=== PATIENT | female | born 1965 | race Caucasian/White ===

== ENCOUNTER 2017-07-19 07:36 | Day surgery (SDC) | payer MEDICAID ==
[2017-07-19] MEDS ORDERED: LIDOCAINE 2% MDV (20MG/ML) 20ML VIAL IV ONE (07:37)
[2017-07-19] MEDS ORDERED: PROPOFOL 10 MG/ML VIAL IV ONE (07:37)
--- NOTE | 2017-07-23 07:10 | Operative Note ---
DATE OF SURGERY: 07/19/2017 REQUESTING PHYSICIAN: Henna Massey MD SURGEON: Tenisha Jay MD POSTOPERATIVE DIAGNOSES: 1. Left-sided colonic diverticulosis. 2. A 6 mm sigmoid colon polyp that was removed by cold snare. 3. A 3 mm sessile polyp in the rectum that was removed by cold biopsy forceps. OPERATION: COLONOSCOPY and exam. REASON FOR PROCEDURE: This is a 52-year-old female with history of intermittent incidents of rectal bleeding who presented for colonoscopy. SEDATION: Sedation as per anesthesia. Pulse oximetry was monitored throughout the duration of the procedure to maintain O2 saturation of 90% or greater. Supplemental oxygen was administered via nasal cannula. Cardiac and vital signs were monitored throughout the duration of the procedure and they were stable. PROCEDURE: Description of the procedure of colonoscopy, risks, and alternatives to the procedure including the risk of bleeding and perforation among others were explained to the patient who voiced understanding and agreed to have the procedure done. A physical examination was performed and the patient was found stable for sedation. The patient was then placed in the left lateral position and sedation was initiated. Digital rectal exam was performed and showed small external hemorrhoids with no palpable rectal masses. A lubricated Olympus PCF-180AL colonoscope was then inserted into the rectum under direct visualization and was advanced to the cecum without difficulty. The ileocecal valve and appendiceal orifice were identified and photographed. The colonic mucosa was carefully examined upon insertion of the colonoscope. There were scattered diverticula noted in the sigmoid colon, and also there was a 6 mm sessile polyp that was removed by cold snare. The rest of the colonic mucosa appeared normal. The bowel preparation was good. The colonoscope was then withdrawn while carefully examining the colonic mucosal surfaces. No other lesions were noted. In the rectum, however, was a 3 mm sessile polyp that was noted and was removed by cold biopsy forceps. Retroflexion revealed grade 1 internal hemorrhoids. The colonoscope was then withdrawn and the procedure was terminated. The patient tolerated the procedure well without any complications. The patient remained with stable vital signs and was sent to the recovery room. PLAN AND RECOMMENDATIONS: 1. The patient is to be on a high-fiber diet. 2. The patient is to have repeat colonoscopy for surveillance in 3 or 5 of 10 years depending on histology of the polyps. Thank you for allowing me to participate in the care of this patient. CC: Henna Massey MD [facility]
== END 2017-07-19 09:30 | disposition home or self-care (01) ==
LOC: HOP 07:36
PROVIDERS: ATTEND Internal Medicine Gastroenterology
DX: D12.5 Benign neoplasm of sigmoid colon (principal); K62.1 Rectal polyp; I10 Essential (primary) hypertension; E03.9 Hypothyroidism, unspecified; M79.7 Fibromyalgia

== ENCOUNTER 2018-04-26 12:07 | Emergency (ER) | payer MEDICAID ==
--- NOTE | 2018-04-26 12:33 | Emergency Department Record ---
History of Present Illness - General Chief complaint: ENT Stated complaint: SORE THROAT Time Seen by Provider: 04/26/18 12:23 Source: Patient Mode of Arrival: Ambulatory - History of Present Illness Initial comments: sore throat and congestion and cough and she has asthma and uses proair. Onset/Timin -: Hour(s) Location: Throat Quality: Aching Consistency: Constant Improves with: None Worsens with: None Associated Symptoms: Pain with swallowing, Sore throat - Related Data Home Medications Medication Instructions Recorded Confirmed Last Taken Gabapentin [Neurontin] 1 tab PO TID 04/26/18 04/26/18 Unknown Levothyroxine Sodium [Synthroid] 1 tab PO DAILY 04/26/18 04/26/18 Unknown Previous Rx's Medication Instructions Recorded Prednisone [Prednisone 20Mg] 20 mg PO BID #10 tab 04/26/18 Allergies Allergy/AdvReac Type Severity Reaction Status Date / Time amoxicillin trihydrate Allergy Intermediate ABDOMINAL Verified 06/19/15 11:18 [From Augmentin] PAIN potassium clavulanate Allergy Intermediate ABDOMINAL Verified 06/19/15 11:18 [From Augmentin] PAIN Sulfa (Sulfonamide Allergy Intermediate RASH Verified 06/19/15 11:18 Antibiotics) milnacipran [From Savella] Allergy unkown Verified 07/05/17 12:34 pregabalin [From Lyrica] AdvReac confusion Verified 07/05/17 12:34 Travel Screening - Travel/Exposure Within Last 30 Days Have you traveled within the last 30 days?: No - Travel/Exposure Within Last Year Have you traveled outside the [place] in the last year?: No - Additonal Travel Details Have you been exposed to anyone with a communicable illness?: No - Travel Symptoms Symptom Screening: None Review of Systems Reviewed: No additional complaints except as noted below Constitutional: Reports: As per HPI. Denies: Chills, Fever, Malaise, Night sweats, Weakness, Weight change Eyes: Reports: As per HPI. Denies: Eye discharge, Eye pain, Photophobia, Vision change ENT: Reports: As per HPI, Throat pain. Denies: Congestion, Dental pain, Ear pain, Epistaxis, Hearing loss Respiratory: Reports: As per HPI. Denies: Cough, Dyspnea, Hemoptysis, Stridor, Wheezes Cardiovascular: Reports: As per HPI. Denies: Arrhythmia, Chest pain, Dyspnea on exertion, Edema, Murmurs, Orthopnea, Palpitations, Paroxysmal nocturnal dyspnea, Rheumatic Fever, Syncope Endocrine: Reports: As per HPI. Denies: Fatigue, Heat or cold intolerance, Polydipsia, Polyuria Gastrointestinal: Reports: As per HPI. Denies: Abdominal pain, Constipation, Diarrhea, Hematemesis, Hematochezia, Melena, Nausea, Vomiting Genitourinary: Reports: As per HPI. Denies: Abnormal menses, Discharge, Dyspareunia, Dysuria, Frequency, Hematuria, Incontinence, Retention, Urgency Musculoskeletal: Reports: As per HPI. Denies: Arthralgia, Back pain, Gout, Joint swelling, Myalgia, Neck pain Skin: Reports: As per HPI. Denies: Bruising, Change in color, Change in hair/ nails, Lesions, Pruritus, Rash Neurological: Reports: As per HPI. Denies: Abnormal gait, Confusion, Headache, Numbness, Paresthesias, Seizure, Tingling, Tremors, Vertigo, Weakness Psychiatric: Reports: As per HPI. Denies: Anxiety, Auditory hallucinations, Depression, Homicidal thoughts, Suicidal thoughts, Visual hallucinations Hematological/Lymphatic: Reports: As per HPI. Denies: Anemia, Blood Clots, Easy bleeding, Easy bruising, Swollen glands Past Medical History - SOCIAL HISTORY Smoking Status: Former smoker Alcohol Use: None Drug Use: None - RESPIRATORY Hx Respiratory Disorders: Yes Hx Asthma: Yes (well controlled, no treatment for couple years) Hx Sleep Apnea: Yes Hx of CPAP: Yes (bipap) - CARDIOVASCULAR Hx Cardio Disorders: Yes Hx Edema: Yes Hx Hypertension: Yes (takes rx to help with kidneys) - NEURO Hx Neuro Disorders: Yes Hx Headaches: Yes (with lupus flare) Hx Neuropathy: Yes (right leg-thigh) - GI Hx GI Disorders: Yes Hx Abdominal Pain: Yes Hx Reflux: Yes Hx Nausea/Vomiting: Yes (with lupus flare) Hx Rectal Bleeding: Yes (hx of hemorrhoids) Comment:: constipation - Hx Genitourinary Disorders: Yes Hx Renal Disease: Yes (d/t lupus) Hx UTI: Yes - ENDOCRINE Hx Endocrine Disorders: Yes Hx Thyroid Disease: Yes - MUSCULOSKELETAL Hx Musculoskeletal Disorders: Yes Hx Arthritis: Yes (back) Hx Back Injury: Yes Hx Fibromyalgia: Yes Comment:: Lupus - PSYCH Hx Psych Problems: Yes Hx Anxiety: Yes Hx Depression: Yes Comment:: home is safe currently - HEMATOLOGY/ONCOLOGY Hx Hematology/Oncology Disorders: Yes Hx Anemia: Yes Hx Blood Transfusions: No Family Medical History Any Significant Family History?: Yes Hx Alcohol Use: Father, Mother, Grandparents Hx Cancer: Father *Cancer Comment: lung Hx Depression: Father, Mother Hx Heart Disease: Brother/Sister, Grandparents Hx HTN: Mother Hx Resp Disorders: Mother, Brother/Sister *Resp Comment: copd Hx Stroke: Grandparents Physical Exam - General General Appearance: Alert, Oriented x3, Cooperative, No acute distress - Head Head exam: Normal inspection - Eye Eye exam: Normal appearance, PERRL Pupils: Normal accommodation - ENT ENT exam: Normal exam, Mucous membranes moist, Normal external ear exam, Normal orophraynx, TM's normal bilaterally Ear exam: Normal external inspection. negative: External canal tenderness Nasal Exam: Normal inspection. negative: Discharge, Sinus tenderness Mouth exam: Normal external inspection, Tongue normal Teeth exam: Normal inspection. negative: Dental caries Throat exam: Normal inspection, Tonsillar erythema, Other (uvula red and swollen with a hoarse voice). negative: Tonsillar exudate - Neck Neck exam: Normal inspection, Full ROM. negative: Tenderness - Respiratory Respiratory exam: Normal lung sounds bilaterally. negative: Respiratory distress - Cardiovascular Cardiovascular Exam: Regular rate, Normal rhythm, Normal heart sounds - GI/Abdominal GI/Abdominal exam: Soft, Normal bowel sounds. negative: Tenderness - Rectal Rectal exam: Deferred - exam: Deferred - Extremities Extremities exam: Normal inspection, Full ROM, Normal capillary refill. negative: Tenderness - Back Back exam: Reports: Normal inspection, Full ROM. Denies: Muscle spasm, Rash noted, Tenderness - Neurological Neurological exam: Alert, Normal gait, Oriented X3, Reflexes normal - Psychiatric Psychiatric exam: Normal affect, Normal mood - Skin Skin exam: Dry, Intact, Normal color, Warm Course Vital Signs 04/26/18 12:10 Temperature 97.7 F Pulse Rate 87 Respiratory 20 Rate Blood Pressure 101/72 Pulse Ox 97 Medical Decision Making - Data Complexity MDM Data: Labs Ordered and/or Reviewed (strep negative) Disposition Clinical Impression: Viral syndrome Pharyngitis Qualifiers: Pharyngitis/tonsillitis etiology: unspecified etiology Qualified Code(s): J02.9 - Acute pharyngitis, unspecified Disposition: Home, Self-Care Condition: (1) Good Instructions: Pharyngitis (ED) Additional Instructions: fluids rest continue proair Prescriptions: Prednisone [Prednisone 20Mg] 20 mg PO BID #10 tab Forms: Patient Portal Access Time of Disposition: 12:37 Quality - Quality Measures Quality Measures: N/A - Blood Pressure Screening Does Patient Have Any of the Following: No Blood Pressure Classification: Normal BP Reading Systolic Measurement: 101 Diastolic Measurement: 72 Screening for High Blood Pressure: < Normal BP, F/U Not Required > [G8783]
== END 2018-04-26 12:50 | disposition home or self-care (01) ==
LOC: ER 12:07
DX: J02.9 Acute pharyngitis, unspecified (principal); B34.9 Viral infection, unspecified
CPT/HCPCS: 87880; 99282

== ENCOUNTER 2018-12-22 23:29 | Emergency (ER) | payer MEDICAID ==
[2018-12-22 23:55] LABS: ABSOLUTE NEUTROPHIL COUNT 4.36; BASO % 0.2 % (0-6); EOS % 1.7 % (0-6); GRAN % 54.5 % (47-80); HEMATOCRIT 33.9 % (35.0-47.0); HEMOGLOBIN 10.9 gm/dl (11.6-16.0); LYMPH % 28.6 % (16-45); MEAN CELL VOLUME 88.7 fl (81-97); MEAN CORPUSCULAR HEMOGLOBIN 28.5 pg (27-33); MEAN CORPUSCULAR HGB CONC 32.2 g/dl (32-36); MEAN PLATELET VOLUME 9.1 fl (7.4-10.4); PLATELET COUNT 348 K/uL (130-400); RED BLOOD COUNT 3.82 M/uL (3.80-5.40); RED CELL DISTRIBUTION WIDTH 14.9 % (11.5-14.5)
[2018-12-23 00:04] LABS: BILIRUBIN,TOTAL 0.4 mg/dL (0.2-1.0); CREATININE 1.6 mg/dL (0.5-0.9); TOTAL PROTEIN 7.1 g/dL (6.6-8.7)
[2018-12-23 00:09] LABS: ALB/GLOB RATIO 1.4 (1.1-1.8); ALBUMIN 4.2 g/dL (4.0-5.0)
[2018-12-23] MEDS ORDERED: 0.9 % SODIUM CHLORIDE 1,000 ML BAG IV ONE ×2 (00:28→01:20)
--- NOTE | 2018-12-23 01:10 | Emergency Department Record ---
History of Present Illness - General Chief complaint: Female Urogenital Problem Stated complaint: UNABLE TO URINATE, FLANK PAIN, EDEMA Time Seen by Provider: 12/22/18 23:42 Source: Patient Mode of Arrival: Ambulatory Limitations: No limitations - History of Present Illness Initial comments: pt states she is unable to urinate. she states she was at [facility] for the same thing yesterday but then was able to go on her own. she states her lads were normal. she states her extremities are swelling MD Complaint: Other Onset/Timin -: Days(s) Location: Suprapubic, LLQ Radiation: Suprapubic Severity: Moderate Severity scale (1-10): 7 Quality: Aching Consistency: Constant Improves with: None Worsens with: None Patient : No Associated Symptoms: Abdominal pain - Related Data Home Medications Medication Instructions Recorded Confirmed Last Taken Atorvastatin Calcium 40 mg PO DAILY 12/22/18 12/22/18 Unknown Hydrocodone/Acetaminophen 1 tab PO Q6HR 12/22/18 12/22/18 Unknown [Hydrocodone/Acetaminophen 7.5mg/325mg] Allergies Allergy/AdvReac Type Severity Reaction Status Date / Time amoxicillin trihydrate Allergy Intermediate ABDOMINAL Verified 06/19/15 11:18 [From Augmentin] PAIN potassium clavulanate Allergy Intermediate ABDOMINAL Verified 06/19/15 11:18 [From Augmentin] PAIN Sulfa (Sulfonamide Allergy Intermediate RASH Verified 06/19/15 11:18 Antibiotics) milnacipran [From Savella] Allergy unkown Verified 07/05/17 12:34 pregabalin [From Lyrica] AdvReac confusion Verified 07/05/17 12:34 Travel Screening - Travel/Exposure Within Last 30 Days Have you traveled within the last 30 days?: No - Travel/Exposure Within Last Year Have you traveled outside the [place] in the last year?: No - Travel Symptoms Symptom Screening: None Review of Systems Reviewed: No additional complaints except as noted below Constitutional: Reports: As per HPI. Denies: Chills, Fever, Malaise, Night sweats, Weakness, Weight change Eyes: Reports: As per HPI. Denies: Eye discharge, Eye pain, Photophobia, Vision change ENT: Reports: As per HPI. Denies: Congestion, Dental pain, Ear pain, Epistaxis, Hearing loss, Throat pain Respiratory: Reports: As per HPI. Denies: Cough, Dyspnea, Hemoptysis, Stridor, Wheezes Cardiovascular: Reports: As per HPI. Denies: Arrhythmia, Chest pain, Dyspnea on exertion, Edema, Murmurs, Orthopnea, Palpitations, Paroxysmal nocturnal dyspnea, Rheumatic Fever, Syncope Endocrine: Reports: As per HPI. Denies: Fatigue, Heat or cold intolerance, Po lydipsia, Polyuria Gastrointestinal: Reports: As per HPI. Denies: Abdominal pain, Constipation, Diarrhea, Hematemesis, Hematochezia, Melena, Nausea, Vomiting Genitourinary: Reports: As per HPI. Denies: Abnormal menses, Discharge, Dyspareunia, Dysuria, Frequency, Hematuria, Incontinence, Retention, Urgency Musculoskeletal: Reports: As per HPI. Denies: Arthralgia, Back pain, Gout, Joint swelling, Myalgia, Neck pain Skin: Reports: As per HPI. Denies: Bruising, Change in color, Change in hair/na ils, Lesions, Pruritus, Rash Neurological: Reports: As per HPI. Denies: Abnormal gait, Confusion, Headache, Numbness, Paresthesias, Seizure, Tingling, Tremors, Vertigo, Weakness Psychiatric: Reports: As per HPI. Denies: Anxiety, Auditory hallucinations, Depression, Homicidal thoughts, Suicidal thoughts, Visual hallucinations Hematological/Lymphatic: Reports: As per HPI. Denies: Anemia, Blood Clots, Easy bleeding, Easy bruising, Swollen glands Past Medical History - SOCIAL HISTORY Smoking Status: Former smoker Alcohol Use: None Drug Use: None - RESPIRATORY Hx Respiratory Disorders: Yes Hx Asthma: Yes (well controlled, no treatment for couple years) Hx Sleep Apnea: Yes Hx of CPAP: Yes (bipap) - CARDIOVASCULAR Hx Cardio Disorders: Yes Hx Edema: Yes Hx Hypertension: Yes (takes rx to help with kidneys) - NEURO Hx Neuro Disorders: Yes Hx Headaches: Yes (with lupus flare) Hx Neuropathy: Yes (right leg-thigh) - GI Hx GI Disorders: Yes Hx Abdominal Pain: Yes Hx Reflux: Yes Hx Nausea/Vomiting: Yes (with lupus flare) Hx Rectal Bleeding: Yes (hx of hemorrhoids) Comment:: constipation - Hx Genitourinary Disorders: Yes Hx Renal Disease: Yes (d/t lupus) Hx UTI: Yes - ENDOCRINE Hx Endocrine Disorders: Yes Hx Thyroid Disease: Yes - MUSCULOSKELETAL Hx Musculoskeletal Disorders: Yes Hx Arthritis: Yes (back) Hx Back Injury: Yes Hx Fibromyalgia: Yes Comment:: Lupus - PSYCH Hx Psych Problems: Yes Hx Anxiety: Yes Hx Depression: Yes Comment:: home is safe currently - HEMATOLOGY/ONCOLOGY Hx Hematology/Oncology Disorders: Yes Hx Anemia: Yes Hx Blood Transfusions: No Family Medical History Any Significant Family History?: Yes Hx Alcohol Use: Father, Mother, Grandparents Hx Cancer: Father *Cancer Comment: lung Hx Depression: Father, Mother Hx Heart Disease: Brother/Sister, Grandparents Hx HTN: Mother Hx Resp Disorders: Mother, Brother/Sister *Resp Comment: copd Hx Stroke: Grandparents Physical Exam - General General Appearance: Alert, Oriented x3, Cooperative, Mild distress - Head Head exam: Normal inspection - Eye Eye exam: Normal appearance, PERRL, EOMI Pupils: Normal accommodation - ENT ENT exam: Normal exam, Mucous membranes moist, Normal external ear exam, Normal orophraynx Ear exam: Normal external inspection. negative: External canal tenderness Nasal Exam: Normal inspection. negative: Discharge, Sinus tenderness Mouth exam: Normal external inspection, Tongue normal Teeth exam: Normal inspection. negative: Dental caries Throat exam: Normal inspection. negative: Tonsillar erythema, Tonsillar exudate - Neck Neck exam: Normal inspection, Full ROM. negative: Tenderness - Respiratory Respiratory exam: Normal lung sounds bilaterally. negative: Respiratory distress - Cardiovascular Cardiovascular Exam: Regular rate, Normal rhythm, Normal heart sounds - GI/Abdominal GI/Abdominal exam: Soft, Normal bowel sounds, Tenderness - Rectal Rectal exam: Deferred - exam: Deferred - Extremities Extremities exam: Normal inspection, Full ROM, Normal capillary refill. negative: Tenderness - Back Back exam: Reports: Normal inspection, Full ROM. Denies: Muscle spasm, Rash noted, Tenderness - Neurological Neurological exam: Alert, CN II-XII intact, Normal gait, Oriented X3 - Psychiatric Psychiatric exam: Normal affect, Normal mood - Skin Skin exam: Dry, Intact, Normal color, Warm Course Vital Signs 12/22/18 23:31 Temperature 98.0 F Pulse Rate 73 Respiratory 16 Rate Blood Pressure 124/71 Pulse Ox 94 L - Reevaluation(s) Reevaluation #1: 12/23/18 03:21 pt has urinated twice since being here. cr and gfr have improved Medical Decision Making - Lab Data Result diagrams: 12/22/18 23:40 12/23/18 02:30 Lab Results 12/22/18 12/22/18 12/23/18 Range/Units 23:40 23:40 00:01 WBC 8.0 (4.2-12.2) K/uL RBC 3.82 (3.80-5.40) M/uL Hgb 10.9 L (11.6-16.0) gm/dl Hct 33.9 L (35.0-47.0) % MCV 88.7 (81-97) fl MCH 28.5 (27-33) pg MCHC 32.2 (32-36) g/dl RDW 14.9 H (11.5-14.5) % Plt Count 348 (130-400) K/uL MPV 9.1 (7.4-10.4) fl Gran % 54.5 (47-80) % Lymphocytes % 28.6 (16-45) % Monocytes % 15.0 H (0-9) % Eosinophils % 1.7 (0-6) % Basophils % 0.2 (0-6) % Absolute Neutrophils 4.36 Sodium 138 (136-145) mmol/L Potassium 3.7 (3.4-4.5) mmol/L Chloride 105 (98-107) mmol/L Carbon Dioxide 24.0 (22-29) mmol/L Anion Gap 9.0 (7-16) BUN 12 (6-20) mg/dL Creatinine 1.6 H (0.5-0.9) mg/dL Estimated GFR 36 mL/min Random Glucose 94 (74-109) mg/dL Calcium 9.5 (8.6-10.0) mg/dL Total Bilirubin 0.40 (0.2-1.0) mg/dL AST 19 (10.0-35.0) U/L ALT 14 (<33) U/L Alkaline Phosphatase 77 (35-104) U/L NT-Pro-B Natriuret Pep 86.54 (<125) pg/mL Total Protein 7.1 (6.6-8.7) g/dL Albumin 4.2 (4.0-5.0) g/dL Globulin 2.9 (1.4-4.8) gm/dL Albumin/Globulin Ratio 1.4 (1.1-1.8) Disposition Disposition: Discharge Clinical Impression: Dehydration, Renal insufficiency Disposition: Home, Self-Care Condition: (1) Good Instructions: Dehydration (ED) Additional Instructions: follow up with family doctor this week. push fluids. return sooner if worse. have labs rechecked Forms: Patient Portal Access Quality - Quality Measures Quality Measures: N/A - Blood Pressure Screening Does Patient Have Any of the Following: No Blood Pressure Classification: Pre-Hypertensive BP Reading Systolic Measurement: 124 Diastolic Measurement: 71 Screening for High Blood Pressure: < Pre-Hypertensive BP, F/U Documented > [G8950] Pre-Hypertensive Follow-up Interventions: Follow-up with rescreen every year.
[2018-12-23 01:33] LABS: URINE APPEARANCE SL CLOUDY; URINE BILIRUBIN NEGATIVE (NEGATIVE); URINE BLOOD NEGATIVE (NEGATIVE); URINE COLOR YELLOW; URINE GLUCOSE (UA) NEGATIVE (NEGATIVE); URINE KETONE NEGATIVE (NEGATIVE); URINE LEUKOCYTE ESTERASE TRACE (NEGATIVE); URINE NITRITE NEGATIVE (NEGATIVE); URINE PROTEIN NEGATIVE (NEGATIVE); URINE UROBILINOGEN 0.2 E.U./dL (0.20 - 1.00)
[2018-12-23 01:40] LABS: URINE BACTERIA FEW; URINE EPITHELIAL CELLS 21 - 35 (FEW); URINE RBC 0 - 2 (NONE SEEN); URINE WBC 0 - 2 (0-2/hpf)
[2018-12-23 03:01] LABS: CREATININE 1.3 mg/dL (0.5-0.9)
--- NOTE | 2018-12-23 11:17 | CT SCAN REPORT ---
EXAM: CT SCAN OF THE ABDOMEN AND PELVIS WITHOUT CONTRAST HISTORY: LOWER BILATERAL BACK PAIN AND UNABLE TO URINATE. PREVIOUS HISTORY OF KIDNEY STONES. TECHNIQUE: Standard CT imaging of the abdomen and pelvis was performed without contrast. Comparison: 02/06/18. FINDINGS: The lung bases are clear. The liver is normal. The gallbladder is mildly distended, but otherwise unremarkable. There is no calcified stone or pericholecystic inflammation. There is no biliary ductal dilatation. The pancreas, spleen, and adrenal glands are normal. There is mild cortical scarring within the right kidney. A small exophytic cyst is noted at the lower pole of the right kidney is unchanged. There is no hydronephrosis or urinary tract calculus. The ureters are unremarkable. The aorta is normal in caliber. There is no retroperitoneal lymphadenopathy. There are a few scattered diverticula within the sigmoid colon with no evidence for acute diverticulitis. The remaining large and small bowel loops are normal. There is no pneumoperitoneum or ascites. The uterus and adnexa are normal. The urinary bladder is unremarkable. The abdominal wall appears intact. There are no acute osseous abnormalities. Stable degenerative changes are present within the lumbar spine and are greatest at the L5-S1 level. There is slight anterolisthesis of L5 on S1 secondary to bilateral facet arthropathy. IMPRESSION: 1. NO ACUTE INTRAABDOMINAL PATHOLOGY. THERE IS NO EVIDENCE FOR URINARY TRACT CALCULUS OR OBSTRUCTIVE UROPATHY. 2. CHRONIC FINDINGS ABOVE. JOB NUMBER: [id number] [facility]
== END 2018-12-23 03:37 | disposition home or self-care (01) ==
LOC: ER 23:29
DX: E86.0 Dehydration (principal); N28.9 Disorder of kidney and ureter, unspecified; M54.5 Low back pain; R10.32 Left lower quadrant pain; I10 Essential (primary) hypertension; Z87.891 Personal history of nicotine dependence
CPT/HCPCS: 74176; 80048; 80053; 81001; 83880; 85025; 96360; 96361; 99284; J7030

== ENCOUNTER 2019-03-18 15:13 | Emergency (ER) | payer MEDICAID ==
--- NOTE | 2019-03-18 15:52 | Emergency Department Record ---
History of Present Illness - General Chief Complaint: General Stated Complaint: NOT FEELING WELL Time Seen by Provider: 03/18/19 15:35 Source: Patient, RN notes reviewed Mode of Arrival: Ambulatory - History of Present Illness Initial comments: patient not feeling well tired and she has slurred speech and she said she stop her pain patch yesterday and took norco 7.5 mg two pills at 1 pm today and she said she used to take two norco's twice a day prior to the pain patches and the pain patch not working. Decreased LOC, nausea - Related Data Home Medications Medication Instructions Recorded Confirmed Last Taken Buprenorphine 1 patch TOP WEEKLY 03/18/19 03/18/19 Unknown Topiramate [Trokendi Xr] 100 mg PO DAILY 03/18/19 03/18/19 Unknown Allergies Allergy/AdvReac Type Severity Reaction Status Date / Time amoxicillin trihydrate Allergy Intermediate ABDOMINAL Verified 06/19/15 11:18 [From Augmentin] PAIN potassium clavulanate Allergy Intermediate ABDOMINAL Verified 06/19/15 11:18 [From Augmentin] PAIN Sulfa (Sulfonamide Allergy Intermediate RASH Verified 06/19/15 11:18 Antibiotics) milnacipran [From Savella] Allergy unkown Verified 07/05/17 12:34 pregabalin [From Lyrica] AdvReac confusion Verified 07/05/17 12:34 Travel Screening - Travel/Exposure Within Last 30 Days Have you traveled within the last 30 days?: No Review of Systems Reviewed: No additional complaints except as noted below Constitutional: Reports: As per HPI. Denies: Chills, Fever, Malaise, Night sweats, Weakness, Weight change Eyes: Reports: As per HPI. Denies: Eye discharge, Eye pain, Photophobia, Vision change ENT: Reports: As per HPI. Denies: Congestion, Dental pain, Ear pain, Epistaxis, Hearing loss, Throat pain Respiratory: Reports: As per HPI, Cough. Denies: Dyspnea, Hemoptysis, Stridor, Wheezes Cardiovascular: Reports: As per HPI. Denies: Arrhythmia, Chest pain, Dyspnea on exertion, Edema, Murmurs, Orthopnea, Palpitations, Paroxysmal nocturnal dyspnea, Rheumatic Fever, Syncope Endocrine: Reports: As per HPI. Denies: Fatigue, Heat or cold intolerance, Polydipsia, Polyuria Gastrointestinal: Reports: As per HPI. Denies: Abdominal pain, Constipation, Diarrhea, Hematemesis, Hematochezia, Melena, Nausea, Vomiting Genitourinary: Reports: As per HPI. Denies: Abnormal menses, Discharge, Dyspareunia, Dysuria, Frequency, Hematuria, Incontinence, Retention, Urgency Musculoskeletal: Reports: As per HPI. Denies: Arthralgia, Back pain, Gout, Joint swelling, Myalgia, Neck pain Skin: Reports: As per HPI. Denies: Bruising, Change in color, Change in hair/nails, Lesions, Pruritus, Rash Neurological: Reports: As per HPI. Denies: Abnormal gait, Confusion, Headache, Numbness, Paresthesias, Seizure, Tingling, Tremors, Vertigo, Weakness Psychiatric: Reports: As per HPI. Denies: Anxiety, Auditory hallucinations, Depression, Homicidal thoughts, Suicidal thoughts, Visual hallucinations Hematological/Lymphatic: Reports: As per HPI. Denies: Anemia, Blood Clots, Easy bleeding, Easy bruising, Swollen glands Past Medical History - SOCIAL HISTORY Smoking Status: Former smoker - RESPIRATORY Hx Respiratory Disorders: Yes Hx Asthma: Yes (well controlled, no treatment for couple years) Hx Sleep Apnea: Yes Hx of CPAP: Yes (bipap) - CARDIOVASCULAR Hx Cardio Disorders: Yes Hx Edema: Yes Hx Hypertension: Yes (takes rx to help with kidneys) - NEURO Hx Neuro Disorders: Yes Hx Headaches: Yes (with lupus flare) Hx Neuropathy: Yes (right leg-thigh) - GI Hx GI Disorders: Yes Hx Abdominal Pain: Yes Hx Reflux: Yes Hx Nausea/Vomiting: Yes (with lupus flare) Hx Rectal Bleeding: Yes (hx of hemorrhoids) Comment:: constipation - Hx Genitourinary Disorders: Yes Hx Renal Disease: Yes (d/t lupus) Hx UTI: Yes - ENDOCRINE Hx Endocrine Disorders: Yes Hx Thyroid Disease: Yes - MUSCULOSKELETAL Hx Musculoskeletal Disorders: Yes Hx Arthritis: Yes (back) Hx Back Injury: Yes Hx Fibromyalgia: Yes Comment:: Lupus - PSYCH Hx Psych Problems: Yes Hx Anxiety: Yes Hx Depression: Yes Comment:: home is safe currently - HEMATOLOGY/ONCOLOGY Hx Hematology/Oncology Disorders: Yes Hx Anemia: Yes Hx Blood Transfusions: No Family Medical History Any Significant Family History?: Yes Hx Alcohol Use: Father, Mother, Grandparents Hx Cancer: Father *Cancer Comment: lung Hx Depression: Father, Mother Hx Heart Disease: Brother/Sister, Grandparents Hx HTN: Mother Hx Resp Disorders: Mother, Brother/Sister *Resp Comment: copd Hx Stroke: Grandparents Physical Exam - General General Appearance: Alert, Oriented x3, Cooperative, No acute distress - Head Head exam: Normal inspection - Eye Eye exam: Normal appearance, PERRL Pupils: Normal accommodation - ENT ENT exam: Normal exam, Mucous membranes moist, Normal external ear exam, Normal orophraynx, TM's normal bilaterally Ear exam: Normal external inspection. negative: External canal tenderness Nasal Exam: Normal inspection. negative: Discharge, Sinus tenderness Mouth exam: Normal external inspection, Tongue normal Teeth exam: Normal inspection. negative: Dental caries Throat exam: Normal inspection. negative: Tonsillar erythema, Tonsillar exudate - Neck Neck exam: Normal inspection, Full ROM. negative: Tenderness - Respiratory Respiratory exam: Normal lung sounds bilaterally. negative: Respiratory distre ss - Cardiovascular Cardiovascular Exam: Regular rate, Normal rhythm, Normal heart sounds - GI/Abdominal GI/Abdominal exam: Soft, Normal bowel sounds. negative: Tenderness - Rectal Rectal exam: Deferred - exam: Deferred - Extremities Extremities exam: Normal inspection, Full ROM, Normal capillary refill. negative: Tenderness - Back Back exam: Reports: Normal inspection, Full ROM. Denies: Muscle spasm, Rash noted, Tenderness - Neurological Neurological exam: Alert, Normal gait, Oriented X3, Reflexes normal - Psychiatric Psychiatric exam: Normal affect, Normal mood - Skin Skin exam: Dry, Intact, Normal color, Warm Course Vital Signs 03/18/19 15:16 Temperature 97.8 F Pulse Rate 63 Respiratory 18 Rate Blood Pressure 122/50 Pulse Ox 98 - Reevaluation(s) Reevaluation #1: present and explained the findings and it is safe to go home 03/18/19 18:22 Medical Decision Making - Data Complexity MDM Data: Labs Ordered and/or Reviewed, X-Ray Ordered and/or Reviewed (ct head negative) - Lab Data Result diagrams: 03/18/19 15:35 03/18/19 15:35 Disposition Clinical Impression: Non-narcotic analgesics causing adverse effect in therapeutic use, Dehydration Disposition: Home, Self-Care Condition: (2) Stable Instructions: Adverse Drug Reaction (ED), Lightheadedness (ED) Additional Instructions: follow up with family in one week decrease norco to one pill at a time and stay off the pain patches and consult her pain Dr about plan of care Forms: Patient Portal Access Time of Disposition: 18:23 Quality - Quality Measures Quality Measures: N/A - Blood Pressure Screening Does Patient Have Any of the Following: No Blood Pressure Classification: Pre-Hypertensive BP Reading Systolic Measurement: 122 Diastolic Measurement: 50 Screening for High Blood Pressure: < Pre-Hypertensive BP, F/U Documented > [G 8950] Pre-Hypertensive Follow-up Interventions: Referral to alternative/primary care provider.
[2019-03-18 15:59] LABS: ABSOLUTE NEUTROPHIL COUNT 7.99; BASO % 0.3 % (0-6); EOS % 0.9 % (0-6); GRAN % 68.9 % (47-80); HEMOGLOBIN 11.4 gm/dl (11.6-16.0); LYMPH % 20.5 % (16-45); MEAN CELL VOLUME 92.5 fl (81-97); MEAN CORPUSCULAR HEMOGLOBIN 28.5 pg (27-33); MEAN CORPUSCULAR HGB CONC 30.8 g/dl (32-36); MEAN PLATELET VOLUME 9.3 fl (7.4-10.4); MONO % 9.4 % (0-9); PLATELET COUNT 427 K/uL (130-400); RED CELL DISTRIBUTION WIDTH 16.4 % (11.5-14.5); WHITE BLOOD COUNT W/O DIFF 11.6 K/uL (4.2-12.2)
[2019-03-18 16:00] LABS: URINE APPEARANCE CLEAR; URINE BILIRUBIN NEGATIVE (NEGATIVE); URINE BLOOD NEGATIVE (NEGATIVE); URINE COLOR YELLOW; URINE GLUCOSE (UA) NEGATIVE (NEGATIVE); URINE KETONE NEGATIVE (NEGATIVE); URINE LEUKOCYTE ESTERASE NEGATIVE (NEGATIVE); URINE NITRITE NEGATIVE (NEGATIVE); URINE UROBILINOGEN 0.2 E.U./dL (0.20 - 1.00)
[2019-03-18 16:07] LABS: AMPHETAMINE SCREEN URINE NOT DETECTED; BARBITURATE SCREEN URINE NOT DETECTED; COCAINE SCREEN URINE NOT DETECTED; METHAMPHETAMINE SCREEN NOT DETECTED; OXYCODONE SCREEN URINE NOT DETECTED; PHENCYCLIDINE SCREEN URINE NOT DETECTED; PROPOXYPHENE SCREEN URINE NOT DETECTED; THC SCREEN URINE NOT DETECTED
[2019-03-18 16:08] LABS: BENZODIAZEPINE SCREEN URINE DETECTED; METHADONE SCREEN URINE NOT DETECTED; OPIATE SCREEN URINE DETECTED; TRICYCLIC ANTIDEPRESSANT SCRN NOT DETECTED
[2019-03-18 16:10] LABS: BLOOD UREA NITROGEN 19 mg/dL (6-20)
[2019-03-18 16:11] LABS: CREATININE 1.1 mg/dL (0.5-0.9); EST GLOMERULAR FILTRATION RATE 55 mL/min; TOTAL PROTEIN 7.1 g/dL (6.6-8.7)
[2019-03-18 16:13] LABS: GLUCOSE,RANDOM 107 mg/dL (74-109)
[2019-03-18 16:16] LABS: ALB/GLOB RATIO 1.6 (1.1-1.8); ALBUMIN 4.4 g/dL (4.0-5.0); ALKALINE PHOSPHATASE 92 U/L (35-104); ALT/SGPT 13 U/L (<33); AST/SGOT 15 U/L (10.0-35.0)
[2019-03-18 16:19] LABS: ACETAMINOPHEN < 5.0 ug/mL (10.0-30.0); SALICYLATE < 0.3 mg/dL (2.8-20)
--- NOTE | 2019-03-18 16:28 | RADIOLOGY REPORT ---
EXAMINATION: Two View Chest Radiographs EXAM DATE: 03/18/2019 4:08 PM TECHNIQUE: Frontal and lateral views INDICATION: cough COMPARISON: June 19, 2015 ENCOUNTER: Not applicable FINDINGS: The heart, mediastinum, and pulmonary vasculature are stable. No lung consolidation or pleural effu sions are present. IMPRESSION: Negative for active intrathoracic disease. Dictated by: Dalila Watkins MD on 03/18/2019 4:26 PM. .
[2019-03-18] MEDS ORDERED: ONDANSETRON HCL IV 4 MG/2 ML VIAL IVP ONE (16:45)
--- NOTE | 2019-03-18 17:26 | CT SCAN REPORT ---
EXAMINATION: CT Head without IV Contrast EXAM DATE: 03/18/2019 5:15 PM TECHNIQUE: Standard protocol CT images of the head were obtained without intravenous contrast. Jorgensen l and sagittal reconstructed images were created. INDICATION: altered loc,slurred speech COMPARISON: None HAND DOMINANCE: Unknown. ENCOUNTER: Not applicable FINDINGS: 1. There is no intracranial mass, midline shift, extraaxial fluid collection or hemorrhage. 2. The ventricles, sulci and cisterns are normal. 3. There are no suspicious area of altered attenuation. 4. There is no fracture. 5. Significant mucosal thickening is noted within the paranasal sinuses. Similarly fluid collection within the mastoid air cells and middle ear cavities is also noted. Correlate clinically for their si gnificance. IMPRESSION: No findings to suggest acute intracranial process. Correlate clinically for paranasal sinus disease. Correlate clinically for otomastoiditis. Please note that foci of acute ischemic insults would be better evaluated with MRI of the brain. Dictated by: Stephon Montoya MD on 03/18/2019 5:21 PM. .
== END 2019-03-18 18:35 | disposition home or self-care (01) ==
LOC: ER 15:13
DX: E86.0 Dehydration (principal); T39.1X5A Adverse effect of 4-Aminophenol derivatives, initial encounter; R40.4 Transient alteration of awareness; R53.83 Other fatigue; R47.81 Slurred speech; R11.0 Nausea; R05 Cough; I10 Essential (primary) hypertension; Z87.891 Personal history of nicotine dependence; N18.9 Chronic kidney disease, unspecified
CPT/HCPCS: 99284 ×2; 96374; 84550; 85025; 85651; 85730; 86140; 80053; 81001; 81003; 82570; 80305; 71046; 70450; G0480 ×3; J2405; 80320; 80329